=== PATIENT | female | born 1995 | race Caucasian/White ===

== ENCOUNTER 2021-06-24 15:31 | Emergency (ER) | payer OTHER ==
[~2021-06-24] VITALS: Ht 165.1 cm; Wt 70.8 kg
[2021-06-24 15:34] VITALS: BP_SYST 148
--- NOTE | 2021-06-24 15:37 | NUR ---
Patient to ER bed 08 to gown for evaluation. Side rails up.
--- NOTE | 2021-06-24 16:05 | NUR ---
ER DR. BRUMFIELD AT THE BEDSIDE EXAMINING PT
--- NOTE | 2021-06-24 16:09 | NUR ---
PT CAME IN C/O NUMBNESS SPREADING FROM BLE TO STOMACH AND LIPS FOR 1 WEEK. STATES SHE HAS A HX OF PANCREATITIS THAT SHE WAS SEEN FOR 1 WEEK AGO WITH SOME ABD PAIN, N/V. PT'S PRIMARY PHYSICIAN HAS REFERRED HER TO A NEUROLOGIST BUT APPT IS IN 3 WEEKS. HER MAJOR CONCERN IS THE NUMBNESS. PT IS AMBULATORY, SHE SAYS WHEN SHE WALKS SHE GETS DIZZY AND WEAK. PT IS AOX4, V/S STABLE
--- NOTE | 2021-06-24 16:18 | NUR ---
LAB AT THE BEDSIDE FOR BLOOD DRAW
[2021-06-24 16:29] LABS: BASOPHILS % (AUTO) 0.7 % (0.0-2.0); EOSINOPHILS # (AUTO) 0.1 K/uL (0.0-0.4); EOSINOPHILS % (AUTO) 2.2 % (0.0-4.0); HEMATOCRIT 44.1 % (36-48); HEMOGLOBIN 15.3 g/dL (12.0-16.0); LYMPHOCYTES # (AUTO) 1.1 K/uL (1.0-5.5); LYMPHOCYTES % (AUTO) 20.8 % (20.5-51.5); MEAN CORPUSCULAR HEMOGLOBIN 36 pg (27-31); MEAN CORPUSCULAR HGB CONC 35 % (32-36); MEAN CORPUSCULAR VOLUME 102 fL (79.0-98.0); MONOCYTES # (AUTO) 0.8 K/uL (0.0-1.0); MONOCYTES % (AUTO) 14.2 % (1.7-9.3); NEUTROPHILS # (AUTO) 3.4 K/uL (1.8-7.7); NEUTROPHILS % (AUTO) 62.1 % (40.0-70.0); PLATELET COUNT (AUTO) 283 K/uL (130-430); RED BLOOD CELL COUNT(AUTO) 4.32 MIL/uL (4.2-6.2); RED CELL DISTRIBUTION WIDTH 12.7 % (9.0-15.0); WHITE BLOOD COUNT (AUTO) 5.5 K/uL (4.8-10.8)
[2021-06-24 16:48] LABS: CALCIUM 9.1 mg/dL (8.4-11.0); CREATININE 0.74 mg/dL (0.55-1.30); POTASSIUM 3.8 mmol/L (3.5-5.1)
[2021-06-24 17:01] LABS: ALBUMIN 3.1 g/dL (3.4-4.8); PHOSPHORUS 4.2 mg/dL (2.7-4.5); TOTAL BILIRUBIN 0.7 mg/dL (0.0-1.0)
--- NOTE | 2021-06-24 17:30 | NUR ---
PT RESTING COMFORTABLY IN [facility], NO DISTRESS, V/S STABLE
[2021-06-24 18:23] VITALS: BP_SYST 148
--- NOTE | 2021-06-24 18:25 | NUR ---
Patient given written and verbal discharge instructions and verbalizes understanding. ER MD discussed with patient the results and treatment provided. Patient in stable condition. ID arm band removed. NO Rx given. Patient educated on pain management and to follow up with PMD. Pain Scale 0/10. Opportunity for questions provided and answered. Medication side effect fact sheet provided.
== END 2021-06-24 18:23 | disposition home or self-care (01) ==
LOC: SED 15:31
DX: R20.2 Paresthesia of skin (principal); R10.9 Unspecified abdominal pain
CPT/HCPCS: 36415; 80053; 83690; 83735; 84100; 84702; 85025; 99283

== ENCOUNTER 2021-07-25 06:37 | Emergency (ER) | payer OTHER ==
[~2021-07-25] VITALS: Ht 165.1 cm; Wt 69.4 kg
[2021-07-25 06:53] VITALS: BP_SYST 149
--- NOTE | 2021-07-25 07:01 | NUR ---
Patient to ER bed 4 to gown for evaluation. Side rails up. Report given to day shift.
[2021-07-25] MEDS ORDERED: IBUP-1969 PO (07:17)
--- NOTE | 2021-07-25 07:20 | NUR ---
DR CATHERINE IN TO ASSESS
--- NOTE | 2021-07-25 07:45 | NUR ---
CRUTCHES AND KNEE BRACE PROVIDED, SENSATION AND CIRCULATION INTACT.
[2021-07-25 08:02] VITALS: BP_SYST 137
--- NOTE | 2021-07-25 08:03 | NUR ---
Patient given written and verbal discharge instructions and verbalizes understanding. ER MD discussed with patient the results and treatment provided. Patient in stable condition. ID arm band removed. Rx of IBU given. Patient educated on pain management and to follow up with PMD. Pain Scale . Opportunity for questions provided and answered. Medication side effect fact sheet provided.
== END 2021-07-25 08:03 | disposition home or self-care (01) ==
LOC: SED 06:37
DX: S83.412A Sprain of medial collateral ligament of left knee, initial encounter (principal); Z79.899 Other long term (current) drug therapy; W10.9XXA Fall (on) (from) unspecified stairs and steps, initial encounter; Y93.89 Activity, other specified; Y92.89 Other specified places as the place of occurrence of the external cause; Y99.8 Other external cause status
CPT/HCPCS: 99283

== ENCOUNTER 2022-07-29 13:29 | Emergency (ER) | payer OTHER ==
[~2022-07-29] VITALS: Ht 165.1 cm; Wt 65.8 kg
[~2022-07-29 13:29] MED LIST: IBUP-1969 PO
[2022-07-29 13:40] VITALS: BP_SYST 148
== END 2022-07-29 15:47 | disposition left against medical advice (07) ==
LOC: SED 13:29
DX: H92.02 Otalgia, left ear (principal); Z53.21 Procedure and treatment not carried out due to patient leaving prior to being seen by health care provider

== ENCOUNTER 2023-02-01 10:40 | Inpatient (IN) | payer OTHER ==
[~2023-02-01] VITALS: Ht 165.1 cm; Wt 61.7 kg
[2023-02-01 10:44] VITALS: BP_SYST 154
--- NOTE | 2023-02-01 10:54 | NUR ---
Patient to ER bed 07 to gown for evaluation. Side rails up.
--- NOTE | 2023-02-01 11:25 | NUR ---
pt BIB self. C/O abdominal pain. pt states pain starts at umbilicus and radiates to flank. 10/10 pain. pt states onset of 1 week. Noted belly distention. pt states SOB related to pain. Pt has NVD onset of a week. PT states Diarrhea episode this morning. pt had hx of HTN and MS. pt skin presents yellow and pale. yellow sclera noted. Pt trembeling with noteable anxiousness. Pt states "i dont know whats wrong im scared."
[2023-02-01 11:31] LABS: BASOPHILS # (AUTO) 0.1 K/uL (0.0-0.2); BASOPHILS % (AUTO) 0.7 % (0.0-2.0); EOSINOPHILS # (AUTO) 0.3 K/uL (0.0-0.4); EOSINOPHILS % (AUTO) 2.6 % (0.0-4.0); HEMATOCRIT 34.7 % (36-48); HEMOGLOBIN 11.9 g/dL (12.0-16.0); LYMPHOCYTES # (AUTO) 2.8 K/uL (1.0-5.5); LYMPHOCYTES % (AUTO) 22.4 % (20.5-51.5); MEAN CORPUSCULAR HEMOGLOBIN 35 pg (27-31); MEAN CORPUSCULAR HGB CONC 34 % (32-36); MEAN CORPUSCULAR VOLUME 102 fL (79.0-98.0); MONOCYTES # (AUTO) 1.1 K/uL (0.0-1.0); MONOCYTES % (AUTO) 9.2 % (1.7-9.3); NEUTROPHILS % (AUTO) 65.1 % (40.0-70.0); PLATELET COUNT (AUTO) 180 K/uL (130-430); RED BLOOD CELL COUNT(AUTO) 3.39 MIL/uL (4.2-6.2); RED CELL DISTRIBUTION WIDTH 17.4 % (9.0-15.0); WHITE BLOOD COUNT (AUTO) 12.3 K/uL (4.8-10.8)
[2023-02-01 11:42] LABS: ANION GAP 9 (5-15); CALCIUM 7.1 mg/dL (8.4-11.0); CHLORIDE 99 mmol/L (98-107); CREATININE 0.82 mg/dL (0.55-1.30); GFR AFRICAN AMERICAN 107 mL/min (>90); GLUCOSE 110 mg/dL (70-99); UREA NITROGEN, BLOOD 6 mg/dL (8-21)
[2023-02-01 11:44] LABS: INR 1.6 (0.8-1.2); PROTHROMBIN TIME 15.8 SECS (9.5-12.5)
[2023-02-01 11:46] LABS: ALANINE AMINOTRANSFERASE 59 U/L (12-78); ALBUMIN 2.1 g/dL (3.4-4.8); AMYLASE 14 U/L (0-100); ASPARTATE AMINOTRANSFERASE 163 U/L (10-37); C-REACTIVE PROTEIN QUANT 2.5 mg/dL (0-0.5); LACTATE DEHYDROGENASE 293 U/L (81-234); LIPASE 64 U/L (73-393); TOTAL BILIRUBIN 8.1 mg/dL (0.0-1.0)
[2023-02-01 11:48] LABS: ACETONE, SERUM NEGATIVE (NEGATIVE)
--- NOTE | 2023-02-01 11:50 | NUR ---
urine collected and sent to lab. clinical laboratory science professor Madonna notes quanity insufficent.
--- NOTE | 2023-02-01 11:55 | NUR ---
MD notes to allow pt bladder to fill for recollection of urine.
--- NOTE | 2023-02-01 12:54 | NUR ---
Admit bed requested Patient will be admitted to care of . Admitted to [facility]UR[facility] unit. Diagnosis LIVER CIRRHOSIS Inpatient (Yes or No) YES Observation (Yes or No) N Orientation concerns or request close to nursing station (Yes or No) NO Covid Status N/A On vent or bipap NO Isolation requirements NO Needs a sitter NO From Home (Yes or if No enter name of facility) YES Requires Dialysis (Yes or No) NO Med Rec Completed (Yes of No) YES
[2023-02-01] MEDS ORDERED: NEU300 PO (13:03)
[2023-02-01] MEDS ORDERED: ZOLPIDEM TARTRATE 5 MG TABLET PO PRN (13:15)
[2023-02-01] MEDS ORDERED: ACETAMINOPHEN 325 MG TABLET PO PRN ×2 (13:15→13:30)
[2023-02-01] MEDS ORDERED: MUPIROCIN 2% TOPICAL OINTMENT 22 GM NS PRN (13:15)
[2023-02-01] MEDS ORDERED: LORazepam 2 MG/ML VIAL IVP PRN (13:15)
[2023-02-01] MEDS ORDERED: CEFOTAXIME SODIUM 1 GM VIAL IV ONE (13:15)
[2023-02-01] MEDS ORDERED: POTASSIUM CHLORIDE 20 MEQ TAB.PRT.SR PO PRN (13:15)
[2023-02-01] MEDS ORDERED: MORPHINE 2 MG/ML INJ. SYRINGE IVP PRN (13:15)
[2023-02-01] MEDS ORDERED: ONDANSETRON HCL 4 MG/2 ML VIAL IVP PRN (13:15)
[2023-02-01] MEDS ORDERED: MAGNESIUM SULFATE 50 ML IV PRN (13:15)
[2023-02-01] MEDS ORDERED: DOCUSATE SODIUM 100 MG CAPSULE PO PRN (13:15)
--- NOTE | 2023-02-01 13:30 | NUR ---
paracentesis procedure done by . pt signed consent form. pt VSS. Pt denies pain. pt tolerated procedure well. 1L of fluid collected.
--- NOTE | 2023-02-01 13:40 | NUR ---
notified MD MAX of unable to aquire urine specimen. pt in bed connected to paracentesis withdrawing fluid. pt unable to get up at this time. denied I&O Cath at this time.
[2023-02-01] MEDS ORDERED: VANCOMYCIN HCL 1000 MG/VIAL IV ONE (13:52)
[2023-02-01] MEDS ORDERED: VANCOMYCIN HCL 1,000 MG in NS 250 ML IV ONE (14:00)
--- NOTE | 2023-02-01 15:48 | NUR ---
CONSULTATION: REASON FOR CONSULT: LIVER CIRRHOSIS CONSULTING PHYSICIAN: DIANE ORDERED BY: RAGHAVENDRA WALTER IS SPLUNK CONSULTANT [phone]
--- NOTE | 2023-02-01 16:52 | NUR ---
CONSULTATION: REASON FOR CONSULT: IUD PENETRATING UTERUS CONSULTING PHYSICIAN: Shawn VASQUEZ ORDERED BY: PATRICK SPOKE WITH DR VASQUEZ HIMSELF AND IS AWARE OF CONSULT
[2023-02-01 17:08] VITALS: BP_SYST 109
--- NOTE | 2023-02-01 17:16 | NUR ---
CONSULTATION: REASON FOR CONSULT: POSS SBP CONSULTING PHYSICIAN: LINDSAY ORDERED BY: [facility] [phone] CAPUTO HIMSELF AND IS AWARE OF CONSULT
[2023-02-01 20:08] VITALS: BP_SYST 118
[2023-02-01 20:30] VITALS: BP_SYST 137
[2023-02-01 20:35] LABS: BODY FLUID GLUCOSE 106 mg/dL; BODY FLUID TOTAL PROTEIN 0.9 g/dL
--- NOTE | 2023-02-01 21:35 | NUR ---
URINE COLLECTED & sent to Lab .
[2023-02-01] MEDS: GABAPENTIN 300 MG CAPSULE PO SCH (22:01)
[2023-02-01] MEDS: MORPHINE 2 MG/ML INJ. SYRINGE IVP PRN (22:02)
[2023-02-01 22:11] LABS: APPEARANCE,SPUN,BODY FLUID CLEAR (CLEAR); BF APPEARANCE UNSPUN SLIGHTLY HAZY (CLEAR); BODY FLUID COLOR YELLOW (LT YELLOW); BODY FLUID SOURCE/ TYPE PARACENTESIS; BODY FLUID TOTAL VOLUME 90 mL
[2023-02-01 22:12] LABS: EOSINOPHIL, BODY FLUID 0 %; LYMPHOCYTES, BODY FLUID 20 %; MONOCYTES,BODY FLUID 76 %; NEUTROPHIL, BODY FLUID 4 %; RBC, BODY FLUID 36 /uL; WBC, BODY FLUID 38 /uL
[2023-02-02] VITALS: BP_SYST 111
--- NOTE | 2023-02-02 00:02 | NUR ---
MORPHINE SULFATE 2 MG IVP administer for acute pain & helpful / .
[2023-02-02 00:53] LABS: BILIRUBIN,URINE 3+ (NEGATIVE); BLOOD, URINE NEGATIVE (NEGATIVE); GLUCOSE,URINE NEGATIVE (NEGATIVE); KETONES,URINE TRACE (NEGATIVE); LEUKOCYTE ESTERASE ,URINE NEGATIVE (NEGATIVE); NITRITE, URINE POSITIVE (NEGATIVE); PH,URINE 6.5 (5.0-8.0); PROTEIN URINE TRACE (NEGATIVE)
[2023-02-02 01:13] LABS: BARBITURATE, URINE NEGATIVE (NEG <=200); BENZODIAZEPINE, URINE NEGATIVE (NEG <=150); CANNABINOID, URINE POSITIVE (NEG <=50); COCAINE, URINE NEGATIVE (NEG <=150); METHAMPHETAMINES SCREEN,URINE NEGATIVE (NEG <=500); OPIATE, URINE NEGATIVE (NEG <=100); PHENCYCLIDINE SCREEN,URINE NEGATIVE (NEG <=25); UR TRICYCLIC ANTIDEPRESSANTS NEGATIVE (NEG <=300); URINE AMPHETAMINE NEGATIVE (NEG <=500); URINE METHADONE NEGATIVE (NEG <=200); URINE OXYCODONE SCREEN NEGATIVE (NEG <=100); URINE PROPOXYPHENE SCREEN NEGATIVE (NEG <=300)
[2023-02-02 01:16] LABS: CLARITY/URINE SLIGHTLY CLOUDY (CLEAR)
[2023-02-02 01:17] LABS: COLOR,URINE AMBER (YELLOW)
[2023-02-02 01:29] LABS: BACTERIA,URINE FEW /HPF (None Seen); RBC,URINE 0-3 /HPF (0-3); WBC,URINE 0-3 /HPF (0-3)
[2023-02-02 01:31] LABS: URINE AMORPHOUS URATE 1+ /HPF (None Seen)
[2023-02-02] MEDS ORDERED: VANCOMYCIN HCL 1,000 MG in NS 250 ML IV SCH (02:00)
--- NOTE | 2023-02-02 03:19 | NUR ---
patient NPO this hour alert & aware [facility] at the bedside .
--- NOTE | 2023-02-02 04:06 | NUR ---
VANCOMYCIN 1 GM IVPB administer as ordered no adverse reaction noted , patient verbally indicative .
[2023-02-02 07:17] LABS: BASOPHILS % (AUTO) 0.5 % (0.0-2.0); EOSINOPHILS # (AUTO) 0.2 K/uL (0.0-0.4); EOSINOPHILS % (AUTO) 2.3 % (0.0-4.0); HEMATOCRIT 28.8 % (36-48); HEMOGLOBIN 10.1 g/dL (12.0-16.0); LYMPHOCYTES # (AUTO) 2.3 K/uL (1.0-5.5); LYMPHOCYTES % (AUTO) 27.7 % (20.5-51.5); MEAN CORPUSCULAR HEMOGLOBIN 36 pg (27-31); MEAN CORPUSCULAR HGB CONC 35 % (32-36); MEAN CORPUSCULAR VOLUME 102 fL (79.0-98.0); MONOCYTES # (AUTO) 0.9 K/uL (0.0-1.0); MONOCYTES % (AUTO) 10.4 % (1.7-9.3); NEUTROPHILS # (AUTO) 4.9 K/uL (1.8-7.7); PLATELET COUNT (AUTO) 126 K/uL (130-430); RED BLOOD CELL COUNT(AUTO) 2.82 MIL/uL (4.2-6.2); RED CELL DISTRIBUTION WIDTH 16.8 % (9.0-15.0); WHITE BLOOD COUNT (AUTO) 8.2 K/uL (4.8-10.8)
[2023-02-02 07:48] LABS: CREATININE 0.71 mg/dL (0.55-1.30)
[2023-02-02 08:00] VITALS: BP_SYST 101
[2023-02-02 08:11] LABS: CALCIUM 6.5 mg/dL (8.4-11.0)
--- NOTE | 2023-02-02 08:20 | NUR ---
OPENING NOTES: PATIENT IN BED WITH EYES CLOSED. RESPONDED TO NAME. PT HAS BEEN NPO SINCE MIDNIGHT FOR ABDOMINAL ULTRA SOUND THIS MORNING. NO S/S OF DISTRESS OR PAIN REPORTED. BREATHING IS EVEN AND UNLABORED ON RA 95%. ALL NEEDS MET AT THIS TIME, SAFETY CHECKS MADE AND CALL LIGHT WITHIN REACH.
[2023-02-02] MEDS ORDERED: PHYTONADIONE 1 MG/0.5 ML SYR SUBCUT ONE (08:45)
[2023-02-02 08:53] LABS: ALBUMIN 1.7 g/dL (3.4-4.8); BILIRUBIN,DIRECT 4.2 mg/dL (0.0-0.3)
[2023-02-02 08:55] LABS: TOTAL BILIRUBIN 5.9 mg/dL (0.0-1.0)
[2023-02-02] MEDS: GABAPENTIN 300 MG CAPSULE PO SCH ×2 (09:00→20:21)
[2023-02-02] MEDS ORDERED: PHYTONADIONE 10 MG/ML AMP SUBCUT ONE (09:15)
[2023-02-02] MEDS: FUROSEMIDE 20 MG TABLET PO SCH (09:55)
[2023-02-02] MEDS: SPIRONOLACTONE 50 MG TABLET (ALDACTONE) PO SCH (10:09)
[2023-02-02 13:06] LABS: NEUTROPHILS % (AUTO) 59.1 % (40.0-70.0)
[2023-02-02 14:48] LABS: SOURCE/TYPE ,BODY FLUID PARACENTESIS
[2023-02-02 15:57] VITALS: BP_SYST 98
[2023-02-02 17:02] VITALS: BP_SYST 109
--- NOTE | 2023-02-02 17:08 | NUR ---
Account Consultant re: social insurance analyst referral In to speak with patient regarding her recent referral. The patient is alert and oriented and agreed to speak with me alone at bedside. Per patient, she resides in a 4-step entry mobile home with her mother. She was using no assistive devices prior to her admission to the hospital. She is independent with her care needs, able to work, and still driving. 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 She states her support is through her mother and boyfriend. Her PCP is Dr. Zapata in [place]; however, she is looking to change dr.s, as it is hard to get in to see her dr. The discharge plan is to return home with her mother. Per patient, either she will drive herself home or her boyfriend will transport her home. Prior to leaving the room, I inquired about her mental health. per patient, she has never been diagnosed with mental health concerns. She does not participate in individual or group services. She states she does not need to participate in such areas, as she has never struggled with anxiety or depression. I went on to inquire about her alcohol usage. Per patient, her alcohol of choice in vodka. She enjoys cocktails and only drinks in social situation on the weekends and some evenings. I asked her about her social situations and she states sometimes it is alone and other times it is with her mother and/or boyfriend. Per patient, her last drink was last Wednesday. The patient is aware of her admitting diagnosis, and states her and the dr. spoke about it. I inquired about her desire to went resources to help with sobriety or local programs that focus on sobriety and support. I reviewed the [place] [facility] program with her and the patient was interested in the resources, but stated she felt like she didn't need help with her alcohol consumption as she has stopped. I reviewed her admitting diagnosis, the patient continued to deny the need for further intervention. The patient was provided sobriety and counseling information for her review.
[2023-02-02] MEDS: MORPHINE 2 MG/ML INJ. SYRINGE IVP PRN ×2 (18:11→23:13)
--- NOTE | 2023-02-02 18:58 | NUR ---
CLOSING NOTES: PT IN BED ON HER CELL PHONE. NO S/S OF DISTRESS OR PAIN REPORTED. BREATHING IS EVEN AND UNLABORED ON RA 96%. EDUCATED PT ON USE OF CALL LIGHT. PT VERBALIZED UNDERSTANDING. ALL NEEDS MET AT THIS TIME, SAFETY CHECKS MADE AND CALL LIGHT WITHIN REACH.
[2023-02-02 20:00] VITALS: BP_SYST 106
[2023-02-02] MEDS: CALCIUM CARBONATE 500 MG/ TAB.CHEW PO SCH (20:21)
--- NOTE | 2023-02-03 04:36 | NUR ---
PER DR VASQUEZ HOLD BREAKFAST IN AM UNTIL HE SPEAKS WITH PT ON IUD ISSUE
[2023-02-03 05:20] LABS: BASOPHILS % (AUTO) 0.5 % (0.0-2.0); EOSINOPHILS # (AUTO) 0.2 K/uL (0.0-0.4); EOSINOPHILS % (AUTO) 2.2 % (0.0-4.0); HEMATOCRIT 29.5 % (36-48); HEMOGLOBIN 10.2 g/dL (12.0-16.0); LYMPHOCYTES # (AUTO) 2.3 K/uL (1.0-5.5); LYMPHOCYTES % (AUTO) 27.2 % (20.5-51.5); MEAN CORPUSCULAR HEMOGLOBIN 35 pg (27-31); MEAN CORPUSCULAR HGB CONC 35 % (32-36); MEAN CORPUSCULAR VOLUME 103 fL (79.0-98.0); MONOCYTES % (AUTO) 12.1 % (1.7-9.3); NEUTROPHILS # (AUTO) 4.8 K/uL (1.8-7.7); PLATELET COUNT (AUTO) 115 K/uL (130-430); RED BLOOD CELL COUNT(AUTO) 2.87 MIL/uL (4.2-6.2); RED CELL DISTRIBUTION WIDTH 17.1 % (9.0-15.0); WHITE BLOOD COUNT (AUTO) 8.3 K/uL (4.8-10.8)
[2023-02-03 05:52] LABS: ALBUMIN 1.6 g/dL (3.4-4.8); BILIRUBIN,DIRECT 3.5 mg/dL (0.0-0.3); CREATININE 0.96 mg/dL (0.55-1.30); TOTAL BILIRUBIN 4.6 mg/dL (0.0-1.0)
[2023-02-03 05:56] LABS: CALCIUM 6.7 mg/dL (8.4-11.0)
[2023-02-03 05:57] LABS: INR 1.6 (0.8-1.2); PROTHROMBIN TIME 16.1 SECS (9.5-12.5)
[2023-02-03 08:00] VITALS: BP_SYST 113
--- NOTE | 2023-02-03 08:23 | NUR ---
opening notes: pt in bed on her cell phone. breathing is even and unlabored on ra 97%. no s/s of distress or pain reported. pt is npo per dr huitron until he comes to follow up with her. pt verbalized understanding. all needs met at this time ,safety checks made and call light within reach.
[2023-02-03] MEDS ORDERED: FURO-150 PO (08:25)
[2023-02-03] MEDS ORDERED: [UNRECOGNIZED DRUG - CODE] PO (08:25)
[2023-02-03] MEDS ORDERED: SPIR50TA PO (08:25)
[2023-02-03 10:07] LABS: HEPATITIS B CORE AB, IgM Negative (Negative); HEPATITIS B CORE AB, TOTAL Negative (Negative); HEPATITIS B SURFACE AG Negative (Negative); HEPATITIS C VIRUS AB Non Reactive (Non Reactive)
--- NOTE | 2023-02-03 10:27 | NUR ---
dr huitron admission nurse coordinator at patient bedside
[2023-02-03] MEDS: CALCIUM CARBONATE 500 MG/ TAB.CHEW PO SCH (11:33)
[2023-02-03] MEDS: FUROSEMIDE 20 MG TABLET PO SCH (11:33)
[2023-02-03] MEDS: GABAPENTIN 300 MG CAPSULE PO SCH (11:34)
[2023-02-03] MEDS: SPIRONOLACTONE 50 MG TABLET (ALDACTONE) PO SCH (11:34)
[2023-02-03 11:44] VITALS: BP_SYST 111
--- NOTE | 2023-02-03 11:52 | NUR ---
patient cleared by dr huitron to go home and follow up with her primary clinical product manager doctor
[2023-02-03 12:33] VITALS: BP_SYST 104
[2023-02-03 13:07] LABS: AFP, TUMOR MARKER 3.4 ng/mL (0.0-4.7)
== END 2023-02-03 11:52 | disposition home or self-care (01) | DRG 280 ==
LOC: SED 10:40 → SMU 12:50
PROVIDERS: ADMIT General Practice; ATTEND General Practice
PROC: 0W9G3ZZ Drainage of Peritoneal Cavity, Percutaneous Approach (ICD-10-PCS; principal; 2023-02-01)
DX: K70.31 Alcoholic cirrhosis of liver with ascites (principal); K70.11 Alcoholic hepatitis with ascites; R65.11 Systemic inflammatory response syndrome (SIRS) of non-infectious origin with acute organ dysfunction; E44.0 Moderate protein-calorie malnutrition; E87.1 Hypo-osmolality and hyponatremia; E87.6 Hypokalemia; Z68.22 Body mass index [BMI] 22.0-22.9, adult; F10.10 Alcohol abuse, uncomplicated; N92.6 Irregular menstruation, unspecified; N39.0 Urinary tract infection, site not specified; G35 Multiple sclerosis; F12.90 Cannabis use, unspecified, uncomplicated; Z30.430 Encounter for insertion of intrauterine contraceptive device; T83.39XA Other mechanical complication of intrauterine contraceptive device, initial encounter
CPT/HCPCS: 36415; 49083; 76376; 76700-TC; 80048; 80053; 80076; 80307; 81000; 82009; 82105; 82150; 82947; 83037; 83605; 83615; 83690; 83735; 84157; 84703; 85025; 85610-TC; 85730-TC; 86140; 86704; 86705; 86803; 87040; 87070-TC; 87340; 87497; 89051-TC; 89060-TC; 96365; 99285; J0696; J0698; J2270; J3370; J3430; J3475; J7040; J7050; J7060

== ENCOUNTER 2023-02-19 13:03 | Emergency (ER) | payer OTHER ==
[~2023-02-19] VITALS: Ht 152.4 cm; Wt 44.5 kg
[~2023-02-19 13:03] MED LIST changes: +FURO-150 PO; +NEU300 PO; +SPIR50TA PO; +[UNRECOGNIZED DRUG - CODE] PO
[2023-02-19 13:16] VITALS: BP_SYST 122
--- NOTE | 2023-02-19 13:42 | NUR ---
Patient to ER bed 03 to gown for evaluation. Side rails up.
--- NOTE | 2023-02-19 14:02 | NUR ---
assumed pt care pt aox4 gcs 15 comes in with c/o acities x 1 week. edilberto was recently diagnosed with liver cirrhosis 02/2023. patient has a hx of MS. pt c/o 07/13 abd pain noted to be jaundice. pt placed on monitor.
--- NOTE | 2023-02-19 14:14 | NUR ---
paracentesis kit set up at bedside
[2023-02-19] MEDS ORDERED: LIDOCAINE 1% 10 MG/ML, 20 ML MDV INJ ONE (14:15)
--- NOTE | 2023-02-19 15:16 | NUR ---
3 liters removed form left lower quad. pt v/s stable. pt in no distress.
--- NOTE | 2023-02-19 15:37 | NUR ---
Patient given written and verbal discharge instructions and verbalizes understanding. ER MD discussed with patient the results and treatment provided. Patient in stable condition. ID arm band removed. Patient educated on acities and to follow up with PMD. Pain Scale [0]. Opportunity for questions provided and answered. Medication side effect fact sheet provided.
[2023-02-19 15:38] VITALS: BP_SYST 117
== END 2023-02-19 15:37 | disposition home or self-care (01) ==
LOC: SED 13:03
DX: R18.8 Other ascites (principal); R41.0 Disorientation, unspecified; R10.30 Lower abdominal pain, unspecified; Z87.738 Personal history of other specified (corrected) congenital malformations of digestive system; Z79.899 Other long term (current) drug therapy
CPT/HCPCS: 49083; 99285

== ENCOUNTER 2023-03-31 13:09 | Emergency (ER) | payer OTHER ==
[~2023-03-31] VITALS: Ht 165.1 cm; Wt 64.4 kg
[2023-03-31 13:10] VITALS: BP_SYST 132; PULSE 121; RESP 19; TEMP 98; O2SAT 99
--- NOTE | 2023-03-31 13:10 | NUR ---
Patient triaged and placed in waiting room. VSS and patient appears in no acute distress at this time. Accompanied by SELF, awaiting available bed, and MD notified of need for MSE.
--- NOTE | 2023-03-31 13:12 | NUR ---
Pt brought by self, A&Ox4, pt presents to ER with abdominal pain/ bloating and persistent cough,SOB with exertion.pt has Hx of MS and ascites, pt last paracentesis was one month ago, denies N/V , skin pink and warm, cap refill <3, VSS,
--- NOTE | 2023-03-31 14:10 | NUR ---
Dr Aguilera evaluating patient at bedside
[2023-03-31 14:13] LABS: BASOPHILS % (AUTO) 0.5 % (0.0-2.0); EOSINOPHILS % (AUTO) 0.6 % (0.0-4.0); HEMATOCRIT 42.6 % (36-48); HEMOGLOBIN 14.5 g/dL (12.0-16.0); LYMPHOCYTES # (AUTO) 1.6 K/uL (1.0-5.5); LYMPHOCYTES % (AUTO) 18.9 % (20.5-51.5); MEAN CORPUSCULAR HEMOGLOBIN 31 pg (27-31); MEAN CORPUSCULAR HGB CONC 34 % (32-36); MEAN CORPUSCULAR VOLUME 90 fL (79.0-98.0); MONOCYTES # (AUTO) 0.6 K/uL (0.0-1.0); MONOCYTES % (AUTO) 7.5 % (1.7-9.3); NEUTROPHILS # (AUTO) 6.2 K/uL (1.8-7.7); NEUTROPHILS % (AUTO) 72.5 % (40.0-70.0); PLATELET COUNT (AUTO) 119 K/uL (130-430); RED BLOOD CELL COUNT(AUTO) 4.74 MIL/uL (4.2-6.2); RED CELL DISTRIBUTION WIDTH 15.7 % (9.0-15.0); WHITE BLOOD COUNT (AUTO) 8.5 K/uL (4.8-10.8)
--- NOTE | 2023-03-31 14:22 | NUR ---
Radiology at bedside
[2023-03-31 14:35] LABS: CALCIUM 7.3 mg/dL (8.4-11.0); CREATININE 0.68 mg/dL (0.55-1.30)
[2023-03-31 14:39] LABS: ALBUMIN 1.8 g/dL (3.4-4.8); TOTAL BILIRUBIN 3.1 mg/dL (0.0-1.0)
--- NOTE | 2023-03-31 15:45 | NUR ---
DR MAX AT BEDSIDE PERFORMING PARACENTESIS
[2023-03-31 16:00] VITALS: BP_SYST 127; PULSE 76; RESP 20; TEMP 98.5; O2SAT 98
--- NOTE | 2023-03-31 16:01 | NUR ---
Patient given written and verbal discharge instructions and verbalizes understanding. ER MD discussed with patient the results and treatment provided. Patient in stable condition. ID arm band removed. No Rx given. Patient educated on pain management and to follow up with PMD. Pain Scale 0/10 . Opportunity for questions provided and answered. Medication side effect fact sheet provided.
== END 2023-03-31 16:01 | disposition home or self-care (01) ==
LOC: SED 13:09
DX: R18.8 Other ascites (principal); R14.0 Abdominal distension (gaseous); R06.00 Dyspnea, unspecified; R05.9 Cough, unspecified; Z79.899 Other long term (current) drug therapy; Z20.822 Contact with and (suspected) exposure to COVID-19
CPT/HCPCS: 36415; 49083; 71045; 76705; 80053; 83690; 85025; 99285

== ENCOUNTER 2023-12-09 05:46 | Emergency (ER) | payer OTHER ==
[~2023-12-09] VITALS: Ht 165.1 cm; Wt 58.5 kg
[2023-12-09 05:57] VITALS: BP_SYST 128; PULSE 117; RESP 22; TEMP 97.9; O2SAT 96
[2023-12-09] MEDS: CARBAMIDE PEROXIDE 6.5% EAR DROPS (DEBROX) OT ONE (06:37)
[2023-12-09 07:05] LABS: BASOPHILS # (AUTO) 0.1 K/uL (0.0-0.2); BASOPHILS % (AUTO) 1.4 % (0.0-2.0); EOSINOPHILS # (AUTO) 0.2 K/uL (0.0-0.4); EOSINOPHILS % (AUTO) 3.3 % (0.0-4.0); HEMATOCRIT 37.7 % (36-48); HEMOGLOBIN 12.9 g/dL (12.0-16.0); LYMPHOCYTES # (AUTO) 1.7 K/uL (1.0-5.5); LYMPHOCYTES % (AUTO) 28.3 % (20.5-51.5); MEAN CORPUSCULAR HEMOGLOBIN 33 pg (27-31); MEAN CORPUSCULAR HGB CONC 34 % (32-36); MEAN CORPUSCULAR VOLUME 97 fL (79.0-98.0); MONOCYTES # (AUTO) 0.5 K/uL (0.0-1.0); MONOCYTES % (AUTO) 7.8 % (1.7-9.3); NEUTROPHILS # (AUTO) 3.7 K/uL (1.8-7.7); NEUTROPHILS % (AUTO) 59.2 % (40.0-70.0); PLATELET COUNT (AUTO) 71 K/uL (130-430); RED CELL DISTRIBUTION WIDTH 14.5 % (9.0-15.0); WHITE BLOOD COUNT (AUTO) 6.2 K/uL (4.8-10.8)
[2023-12-09 07:22] LABS: CALCIUM 7.7 mg/dL (8.4-11.0); CREATININE 0.56 mg/dL (0.55-1.30); POTASSIUM 3.1 mmol/L (3.5-5.1)
[2023-12-09] MEDS ORDERED: TRAM50TA2 PO (07:24)
[2023-12-09] MEDS ORDERED: CIPR10DR17 OT (07:24)
[2023-12-09] MEDS: POTASSIUM CHLORIDE 20 MEQ TABLET.ER PO ONE (07:35)
[2023-12-09 07:56] VITALS: BP_SYST 137; PULSE 103; RESP 18; TEMP 99.6; O2SAT 97
== END 2023-12-09 07:39 | disposition home or self-care (01) ==
LOC: SED 05:46
DX: H60.91 Unspecified otitis externa, right ear (principal); F10.129 Alcohol abuse with intoxication, unspecified; E87.6 Hypokalemia; Z79.899 Other long term (current) drug therapy; Y90.6 Blood alcohol level of 120-199 mg/100 ml
CPT/HCPCS: 99283; 80048; 85025; 36415; G0482

== ENCOUNTER 2024-04-01 10:43 | Emergency (ER) | payer OTHER ==
[~2024-04-01] VITALS: Ht 165.1 cm; Wt 57.2 kg
[~2024-04-01 10:43] MED LIST changes: +CIPR10DR17 OT; +TRAM50TA2 PO
[2024-04-01 10:54] VITALS: BP_SYST 144; PULSE 104; RESP 18; TEMP 98.3; O2SAT 98
[2024-04-01] MEDS ORDERED: HYDR-3917 PO (11:03)
[2024-04-01 13:10] VITALS: BP_SYST 140; PULSE 86; RESP 18; TEMP 98.6; O2SAT 100
== END 2024-04-01 13:10 | disposition home or self-care (01) ==
LOC: SED 10:43
DX: S03.2XXA Dislocation of tooth, initial encounter (principal); S02.5XXA Fracture of tooth (traumatic), initial encounter for closed fracture; S63.502A Unspecified sprain of left wrist, initial encounter; V00.141A Fall from scooter (nonmotorized), initial encounter; Y93.89 Activity, other specified; Y92.89 Other specified places as the place of occurrence of the external cause; Y99.8 Other external cause status
CPT/HCPCS: 73564; 99284

== ENCOUNTER 2024-05-25 11:19 | Emergency (ER) | payer OTHER ==
[~2024-05-25] VITALS: Ht 165.1 cm; Wt 61.7 kg
[~2024-05-25 11:19] MED LIST changes: +HYDR-3917 PO
[2024-05-25 11:28] VITALS: BP_SYST 121; PULSE 108; RESP 18; TEMP 97.9; O2SAT 97
[2024-05-25 13:19] LABS: HEMOGLOBIN 11.3 g/dL (12.0-16.0); MEAN CORPUSCULAR HEMOGLOBIN 34 pg (27-31); MEAN CORPUSCULAR HGB CONC 33 % (32-36)
[2024-05-25 13:23] LABS: MEAN CORPUSCULAR VOLUME 103 fL (79.0-98.0); PLATELET COUNT (AUTO) 114 K/uL (130-430); RED CELL DISTRIBUTION WIDTH 17.4 % (9.0-15.0)
[2024-05-25 13:49] LABS: ALBUMIN 2.9 g/dL (3.4-4.8); ANISOCYTOSIS 1+; BAND % (MANUAL) 2 % (0-6); BASOPHILS % (MANUAL) 0 % (0-2); CREATININE 0.67 mg/dL (0.55-1.30); EOSINOPHILS % (MANUAL) 6 % (0-7); LYMPHOCYTES % (MANUAL) 25 % (20-46); MONOCYTES % (MANUAL) 10 % (0-11); PLATELET ESTIMATE DECREASED (ADEQUATE); POTASSIUM 3.9 mmol/L (3.5-5.1); TOTAL BILIRUBIN 3.2 mg/dL (0.0-1.0); TOTAL PROTEIN, SERUM 7.9 g/dL (6.4-8.3)
[2024-05-25 13:58] LABS: BILIRUBIN,DIRECT 1.8 mg/dL (0.0-0.3)
[2024-05-25 13:59] LABS: INR 1.3 (0.8-1.2); PROTHROMBIN TIME 13.3 SECS (9.5-12.5)
[2024-05-25 15:16] VITALS: BP_SYST 121; PULSE 108; RESP 18; TEMP 97.9; O2SAT 97
== END 2024-05-25 15:15 | disposition home or self-care (01) ==
LOC: SED 11:19
DX: S40.021A Contusion of right upper arm, initial encounter (principal); K74.60 Unspecified cirrhosis of liver; Z79.899 Other long term (current) drug therapy; Z79.2 Long term (current) use of antibiotics; W25.XXXA Contact with sharp glass, initial encounter; Y93.89 Activity, other specified; Y92.89 Other specified places as the place of occurrence of the external cause; Y99.8 Other external cause status
CPT/HCPCS: 36415; 71250-TC; 80048; 80076; 83605; 85007; 85027; 85610; 85730; 99284